=== PATIENT | female | born 1955 | race Caucasian/White ===

== ENCOUNTER 2022-04-11 11:29 | Emergency (ER) | payer OTHER ==
[~2022-04-11] VITALS: Ht 167.6 cm; Wt 93.0 kg
--- NOTE | 2022-04-11 11:42 | NUR ---
DR SAUCEDO BY CHAIR IN ER TO EXAMINE PT
[2022-04-11 11:43] VITALS: BP_SYST 130
[2022-04-11] MEDS ORDERED: IBUPROFEN 600 MG TABLET PO ONE (12:00)
[2022-04-11] MEDS ORDERED: ACETAMINOPHEN 500 MG TABLET PO ONE (12:00)
[2022-04-11] MEDS ORDERED: IBUP-1969 PO (13:05)
[2022-04-11] MEDS ORDERED: ACET-2634 PO (13:05)
--- NOTE | 2022-04-11 13:20 | NUR ---
Patient given written and verbal discharge instructions and verbalizes understanding. ER MD discussed with patient the results and treatment provided. Patient in stable condition. ID arm band removed. Rx of TYLENOL ES, IBUPROFEN given. Patient educated on pain management and to follow up with PMD. Pain Scale . Opportunity for questions provided and answered. Medication side effect fact sheet provided.
[2022-04-11 15:23] VITALS: BP_SYST 22
== END 2022-04-11 13:20 | disposition home or self-care (01) ==
LOC: SED 11:29
DX: M25.512 Pain in left shoulder (principal); R68.84 Jaw pain; E11.9 Type 2 diabetes mellitus without complications; E78.5 Hyperlipidemia, unspecified; Z79.899 Other long term (current) drug therapy
CPT/HCPCS: 73030; 99283